=== PATIENT | male | born 1970 | race Caucasian/White ===

== ENCOUNTER → 2018-10-31 | Outpatient (CLI) | payer BC ==
--- NOTE | 2018-10-31 15:42 | Diagnostic Imaging Report ---
INDICATION: Left knee injury. FINDINGS: Three views of the left knee show no fracture, dislocation, or other acute abnormalities. IMPRESSION: Negative left knee. Dictated by: Dictated on workstation # [id number]
== END ==
LOC: RAD FS 15:02
PROVIDERS: ATTEND Nurse Practitioner Family
DX: S89.92XA Unspecified injury of left lower leg, initial encounter (principal)
CPT/HCPCS: 73562

== ENCOUNTER 2021-09-09 09:49 | Outpatient (CLI) | payer BC ==
[~2021-09-09] VITALS: Ht 182.9 cm; Wt 145.2 kg
[2021-09-09] MEDS ORDERED: ONDANSETRON 4 MG/2 ML (SDV) Z0FRAN IV PRN (10:00)
[2021-09-09] MEDS ORDERED: ACETAMINOPHEN 500 MG TAB (TYLENOL) PO PRN (10:00)
[2021-09-09] MEDS ORDERED: diphenhydrAMINE 50 MG/ML INJ (BENADRYL) IV PRN (10:00)
[2021-09-09] MEDS ORDERED: EPINEPHrine INJECTION 1 MG/ML AMP IM PRN (10:00)
[2021-09-09] MEDS ORDERED: CASIRIVIMAB/IMDEVIMAB 1,200 MG in NS (IVPB) 50 ML IV ONE (10:00)
[2021-09-09 10:11] VITALS: BP 147/93
[2021-09-09 10:15] VITALS: BP 139/83
[2021-09-09 10:30] VITALS: BP 128/81
[2021-09-09 10:50] VITALS: BP 132/81
== END 2021-09-09 10:57 | disposition home or self-care (01) ==
LOC: INFUSION 09:49
PROVIDERS: ATTEND Nurse Practitioner Family
DX: U07.1 COVID-19 (principal)